=== PATIENT | female | born 1965 | race Caucasian/White ===

== ENCOUNTER 2024-01-01 18:46 | Observation (INO) | payer OTHER ==
[2024-01-01 20:10] LABS: VENOUS BASE EXCESS 1.4 mmol/L (-2-2); VENOUS O2 SATURATION 76.2 % (70-80); VENOUS PCO2 45.2 mmHg (38-52); VENOUS PH 7.39 (7.310-7.410)
[2024-01-01 20:17] LABS: BASO % 0.7 % (0-2.0); EOS % 2.9 % (0-4.5); HEMATOCRIT 36.9 % (32.4-45.2); HEMOGLOBIN 11.8 GM/dL (10.7-15.3); LYMPH % 25.5 % (8-40); MCH 24.6 pg (25.7-33.7); MEAN PLT VOLUME 9.9 fl (7.5-11.1); MONO % 7.7 % (3.8-10.2); NEUT % 63.2 % (42.8-82.8); PLATELET COUNT 201 10^3/uL (134-434); RBC 4.78 M/mm3 (3.60-5.2); RDW 16.3 % (11.6-15.6)
[2024-01-01 20:38] LABS: PH,URINE 6.5 (5.0-8.0); URINE APPEARANCE CLEAR; URINE BILIRUBIN NEGATIVE (NEGATIVE); URINE COLOR YELLOW; URINE GLUCOSE (UA) NEGATIVE (NEGATIVE); URINE KETONE NEGATIVE (NEGATIVE); URINE LEUK ESTERASE NEGATIVE (NEGATIVE); URINE NITRITE NEGATIVE (NEGATIVE); URINE PROTEIN TRACE (NEGATIVE); URINE UROBILINOGEN 0.2 mg/dL (0.2-1.0)
[2024-01-01 21:02] LABS: POTASSIUM 3.9 mmol/L (3.5-5.1)
[2024-01-01 21:05] LABS: BLOOD UREA NITROGEN 11.1 mg/dL (7-18); CALCIUM 8.6 mg/dL (8.5-10.1); MAGNESIUM 2.2 mg/dL (1.8-2.4)
[2024-01-01 21:06] LABS: ALBUMIN 3.8 g/dl (3.4-5.0)
[2024-01-01 21:08] LABS: CREATININE 0.7 mg/dL (0.55-1.3)
[2024-01-01 21:10] LABS: BILIRUBIN,TOTAL 0.5 mg/dL (0.2-1); TOT PROT 6.9 g/dl (6.4-8.2)
[2024-01-01 21:14] LABS: N-TERMINAL BNP 625.8 pg/ml (5-125)
[2024-01-01] MEDS ORDERED: ASPIRIN 81 MG CHEWABLE TABLETS ONE (23:03)
[2024-01-01] MEDS: ASPIRIN 81 MG CHEWABLE TABLETS PO ONE (23:07)
[2024-01-01] MEDS: ACETAMINOPHEN 1000 MG/100 ML BAG IVPB ONE (23:07)
[2024-01-02 06:42] LABS: HEMATOCRIT 37.5 % (32.4-45.2); HEMOGLOBIN 11.7 GM/dL (10.7-15.3); MCH 24.2 pg (25.7-33.7); MCHC 31.1 g/dl (32.0-36.0); MEAN CELL VOLUME 77.7 fl (80-96); MEAN PLT VOLUME 9.5 fl (7.5-11.1); PLATELET COUNT 177 10^3/uL (134-434); RBC 4.83 M/mm3 (3.60-5.2); RDW 16.3 % (11.6-15.6); WHITE BLOOD COUNT 6.2 K/mm3 (4.0-10.0)
[2024-01-02 06:57] LABS: POTASSIUM 3.4 mmol/L (3.5-5.1)
[2024-01-02 07:04] LABS: PHOSPHOROUS 4.6 mg/dL (2.5-4.9)
[2024-01-02 07:05] LABS: ALBUMIN 3.5 g/dl (3.4-5.0)
[2024-01-02 07:06] LABS: TOT PROT 6.4 g/dl (6.4-8.2)
[2024-01-02 07:08] LABS: CREATININE 0.6 mg/dL (0.55-1.3)
[2024-01-02 07:14] LABS: BILIRUBIN,TOTAL 0.6 mg/dL (0.2-1)
[2024-01-02] MEDS ORDERED: POTASSIUM CHLORIDE ORAL LIQUID 20 MEQ/15 ML ONE (08:52)
[2024-01-02] MEDS: POTASSIUM CHLORIDE ORAL LIQUID 20 MEQ/15 ML PO ONE (08:58)
[2024-01-02 09:42] LABS: INR 1.01 (0.83-1.09); PROTHROMBIN TIME (PATIENT) 11.6 SEC (9.7-13.0)
[2024-01-02 09:44] LABS: ACTIVATED PTT 31.9 SECONDS (25.2-36.5)
[2024-01-02] MEDS: ENOXAPARIN NA (PORCINE) 40 MG/0.4 ML DISP.SYRIN SQ SCH (10:55)
[2024-01-02] MEDS ORDERED: LISINOPRIL 5 MG TABLET ONE (11:12)
[2024-01-02] MEDS ORDERED: APIXABAN 5 MG TABLET ONE (11:12)
[2024-01-02] MEDS ORDERED: amLODIPine BESYLATE 5 MG TABLET (FP) ONE (11:12)
[2024-01-02] MEDS: APIXABAN 5 MG TABLET PO ONE (11:18)
[2024-01-02] MEDS: amLODIPine BESYLATE 5 MG TABLET (FP) PO SCH (11:18)
[2024-01-02] MEDS: LISINOPRIL 5 MG TABLET PO SCH (11:18)
[2024-01-02] MEDS: IRON SUCROSE INJECTION 100 MG in SODIUM CHLORIDE 95 ML IVPB ONE (18:30)
[2024-01-02 20:34] VITALS: BMI 26.2
[2024-01-02] MEDS: ATORVASTATIN CA 20 MG TABLET (FP) PO SCH (21:56)
[2024-01-02] MEDS ORDERED: APIXABAN 5 MG TABLET PO SCH (22:00)
[2024-01-02] MEDS: LATANOPROST 0.005% OPHTH SOLN 2.5ML BOTTLE OU SCH (22:02)
[2024-01-03 07:27] LABS: BASO % 0.6 % (0-2.0); EOS % 5.2 % (0-4.5); HEMATOCRIT 35.3 % (32.4-45.2); HEMOGLOBIN 11.5 GM/dL (10.7-15.3); LYMPH % 42.8 % (8-40); MCH 25.1 pg (25.7-33.7); MCHC 32.7 g/dl (32.0-36.0); MEAN CELL VOLUME 76.7 fl (80-96); MEAN PLT VOLUME 10.1 fl (7.5-11.1); MONO % 7.9 % (3.8-10.2); NEUT % 43.5 % (42.8-82.8); PLATELET COUNT 178 10^3/uL (134-434); RDW 15.9 % (11.6-15.6); WHITE BLOOD COUNT 5.4 K/mm3 (4.0-10.0)
[2024-01-03 07:40] LABS: POTASSIUM 3.8 mmol/L (3.5-5.1)
[2024-01-03 07:42] LABS: CALCIUM 8.6 mg/dL (8.5-10.1)
[2024-01-03 07:43] LABS: ALBUMIN 3.2 g/dl (3.4-5.0); BLOOD UREA NITROGEN 12.9 mg/dL (7-18)
[2024-01-03 07:46] LABS: CREATININE 0.6 mg/dL (0.55-1.3); PHOSPHOROUS 4.9 mg/dL (2.5-4.9)
[2024-01-03 07:47] LABS: TOT PROT 6.1 g/dl (6.4-8.2)
[2024-01-03 07:48] LABS: BILIRUBIN,TOTAL 0.4 mg/dL (0.2-1)
[2024-01-03] MEDS: ENOXAPARIN NA (PORCINE) 40 MG/0.4 ML DISP.SYRIN SQ SCH (09:36)
[2024-01-03] MEDS: POLYETHYLENE GLYCOL (HEALTHYLAX) 3350 17 GM PACKET PO SCH (09:37)
[2024-01-03 14:30] VITALS: BP 118/64; PULSE 58; RESP 18; TEMP 98
[2024-01-03] MEDS ORDERED: APIXABAN 5 MG TABLET PO SCH (22:00)
[2024-01-03] MEDS ORDERED: SENNOSIDES 8.8 MG/5 ML SYRUP PO SCH (22:00)
== END 2024-01-03 15:04 | disposition home or self-care (01) ==
LOC: JER 18:46 → JERBED 01-02 00:33 → INTOOBSV 01-02 00:33 → UNDOADMOB 01-02 00:33 → JERBED 01-02 02:02 → J4S 01-02 20:20
PROVIDERS: ADMIT Internal Medicine; ATTEND Internal Medicine
PROC: 3E033GC Introduction of Other Therapeutic Substance into Peripheral Vein, Percutaneous Approach (ICD-10-PCS; principal; 2024-01-02)
PROC: 3E023GC Introduction of Other Therapeutic Substance into Muscle, Percutaneous Approach (ICD-10-PCS; 2024-01-02)
DX: R55 Syncope and collapse (principal); R79.89 Other specified abnormal findings of blood chemistry; I67.1 Cerebral aneurysm, nonruptured; D50.9 Iron deficiency anemia, unspecified; I48.91 Unspecified atrial fibrillation; I10 Essential (primary) hypertension; E78.5 Hyperlipidemia, unspecified; Z86.73 Personal history of transient ischemic attack (TIA), and cerebral infarction without residual deficits
CPT/HCPCS: 36415; 70450-TC; 70496-TC; 70498-TC; 71045-TC-FY; 80053; 81003; 82728; 82803; 82962; 83540; 83550; 83735; 83880; 84100; 84439; 84443; 84484; 85025; 85027; 85610; 85730; 86850; 86900; 86901; 87086; 93005; 93010; 93306-TC; 96365; 96372; 99285-25; G0378; J1756; Q9967